=== PATIENT | male | born 1950 | race Caucasian/White ===

== ENCOUNTER 2019-06-02 12:49 | Emergency (ER) | payer MEDICARE ==
[~2019-06-02] VITALS: Ht 157.5 cm; Wt 68.0 kg
[~2019-06-02 12:49] MED LIST: ALBIPROI INH; AMIL5 PO; AMOCLA875 PO; ANXIETY MED; ASPI81EC PO; BUSP10 PO; CALCAVITDA PO; FLUNOI IH; GUAI600T33 PO; HYDACE10B PO; LEVO750 PO; LISHYD2012 PO; LISHYD2025 PO; LITH300C PO; LITH300ER PO; METH10 PO; METO25ER PO; MULVITMIND PO; NICO14TP TOP; NICOTINE; OMEP20ER PO; ONDA4 PO
[2019-06-02] MEDS ORDERED: BENZ100A PO (13:09)
[2019-06-02] MEDS ORDERED: BUSP10 PO ×2 (13:10→13:11)
[2019-06-02] MEDS ORDERED: CEPH500 PO (13:11)
[2019-06-02] MEDS ORDERED: GABA300 PO (13:12)
[2019-06-02] MEDS ORDERED: LITH300ER PO (13:13)
[2019-06-02] MEDS ORDERED: Atarax10 MG PO (13:13)
[2019-06-02] MEDS ORDERED: MONT10T PO (13:14)
[2019-06-02] MEDS ORDERED: MOME220I (13:14)
[2019-06-02] MEDS ORDERED: OMEP20ER PO (13:15)
[2019-06-02] MEDS ORDERED: STRIVERDI RESPIM4 GM INH (13:15)
[2019-06-02] MEDS ORDERED: Ultram50 MG PO (14:46)
== END 2019-06-02 15:15 | disposition home or self-care (01) ==
LOC: ER 12:49
DX: M25.552 Pain in left hip (principal); I10 Essential (primary) hypertension; F31.9 Bipolar disorder, unspecified; Z91.011 Allergy to milk products; Z79.82 Long term (current) use of aspirin; Z79.891 Long term (current) use of opiate analgesic; Z79.899 Other long term (current) drug therapy; W05.0XXA Fall from non-moving wheelchair, initial encounter
CPT/HCPCS: 73502; 99283-25

== ENCOUNTER 2019-10-24 22:30 | Inpatient (IN) | payer OTHER, MEDICARE ==
[~2019-10-24] VITALS: Ht 165.1 cm; Wt 80.8 kg
[~2019-10-24 22:30] MED LIST changes: +Aspir 8181 MG PO; +Atarax10 MG PO; +BENZ100A PO; +CEPH500 PO; +GABA300 PO; +Hair, Skin & N1 EACH PO; +MOME220I; +MONT10T PO; -MULVITMIND PO; +OYSTER SHELL 51 EACH PO; +STRIVERDI RESPIM4 GM INH; +Ultram50 MG PO
[2019-10-24 23:18] LABS: BASOPHILS ABSOLUTE AUTO 0.01 K/mm3 (0.00-0.23); BASOPHILS PERCENT AUTO 0 % (0-2); EOSINOPHILS ABSOLUTE AUTO 0.03 K/mm3 (0.00-0.68); EOSINOPHILS PERCENT AUTO 0 % (0-6); Hematocrit 38.9 % (37.0-53.0); Hemoglobin 12.2 g/dL (13.5-17.5); IMMATURE GRAN ABSOLUTE AUTO 0.04 K/mm3 (0.00-0.10); IMMATURE GRAN PERCENT AUTO 0 % (0-1); LYMPHOCYTES ABSOLUTE AUTO 2.47 K/mm3 (0.84-5.20); LYMPHOCYTES PERCENT AUTO 20 % (21-46); MONOCYTES ABSOLUTE AUTO 0.84 K/mm3 (0.16-1.47); MONOCYTES PERCENT AUTO 7 % (4-13); Mean Corpuscular HGB 29.5 pg (26.0-34.0); Mean Corpuscular HGB Conc 31.4 g/dL (31.5-36.5); Mean Corpuscular Volume 94 fL (80-100); Mean Platelet Volume 11.3 fL (9.1-12.4); NEUTROPHILS ABSOLUTE AUTO 9.11 K/mm3 (1.96-9.15); NEUTROPHILS PERCENT AUTO 73 % (41-73); Platelet Count 215 K/mm3 (150-400); RDW Coefficient Variation 13.7 % (11.7-14.2); RDW Standard Deviation 47.5 fL (35.1-46.3); Red Blood Cell Count 4.13 M/mm3 (4.30-5.90)
[2019-10-24 23:33] LABS: Alanine Aminotransfer (ALT/SGP 75 U/L (12-78); Albumin, Blood 3.9 g/dL (3.4-5.0); Albumin/Globulin Ratio 1.2 (0.8-1.8); Alk Phos 77 U/L (50-136); Anion Gap 6 mmol/L (6-16); Aspartate Aminotrans (AST/SGOT 38 U/L (12-37); Bilirubin, Total 0.2 mg/dL (0.1-1.0); Blood Urea Nitrogen 26 mg/dL (8-24); Bun/Creatinine Ratio 23.4 (12.0-20.0); CO2, Blood 25 mmol/L (21-32); Calcium, Blood 8.6 mg/dL (8.5-10.1); Chloride, Blood 111 mmol/L (98-108); Creatinine, Blood 1.11 mg/dL (0.60-1.20); Globulin, Blood 3.3 g/dL (2.2-4.0); Glomerular Filtration Rate >60 (60-); Glucose, Blood 126 mg/dL (70-99); Potassium, Blood 3.7 mmol/L (3.5-5.5); Sodium, Blood 142 mmol/L (136-145); Total Protein, Blood 7.2 g/dL (6.4-8.2); Troponin I <0.015 ng/mL (0.000-0.040)
--- NOTE | 2019-10-25 03:05 | NUR ---
PATIENT'S CAREGIVER CALLED TO SEE HOW HE WAS DOING. I UPDATED HER ON HIS STATUS AND LET HER KNOW THAT HE WAS RESTING COMFORTABLY. SINCE PATIENT WAS NOT A GOOD HISTORIAN REGARDING HIS MEDICATIONS, I WENT OVER HIS MEDICATION RECORD WITH HER. SHE SAID THE PATIENT WAS A DNR. I ASKED HER IF SHE COULD BRING IN HIS ADVANCED DIRECTIVE SO WE WOULD GET HIS WISHES ON FILE.
[2019-10-25 04:32] LABS: Hematocrit 39.4 % (37.0-53.0); Hemoglobin 12.5 g/dL (13.5-17.5); Mean Corpuscular HGB 29.6 pg (26.0-34.0); Mean Corpuscular HGB Conc 31.7 g/dL (31.5-36.5); Mean Corpuscular Volume 93 fL (80-100); Mean Platelet Volume 10.7 fL (9.1-12.4); Platelet Count 210 K/mm3 (150-400); RDW Coefficient Variation 13.7 % (11.7-14.2); RDW Standard Deviation 47.4 fL (35.1-46.3); Red Blood Cell Count 4.22 M/mm3 (4.30-5.90); White Blood Cell Count 10.39 K/mm3 (4.00-11.30)
[2019-10-25 04:56] LABS: Alanine Aminotransfer (ALT/SGP 73 U/L (12-78); Albumin, Blood 3.8 g/dL (3.4-5.0); Albumin/Globulin Ratio 1.2 (0.8-1.8); Alk Phos 70 U/L (50-136); Anion Gap 6 mmol/L (6-16); Aspartate Aminotrans (AST/SGOT 34 U/L (12-37); Bilirubin, Total 0.2 mg/dL (0.1-1.0); Blood Urea Nitrogen 28 mg/dL (8-24); Bun/Creatinine Ratio 27.7 (12.0-20.0); CO2, Blood 25 mmol/L (21-32); Calcium, Blood 8.7 mg/dL (8.5-10.1); Chloride, Blood 111 mmol/L (98-108); Creatinine, Blood 1.01 mg/dL (0.60-1.20); Globulin, Blood 3.3 g/dL (2.2-4.0); Glomerular Filtration Rate >60 (60-); Glucose, Blood 130 mg/dL (70-99); Potassium, Blood 4.2 mmol/L (3.5-5.5); Sodium, Blood 142 mmol/L (136-145); Total Protein, Blood 7.1 g/dL (6.4-8.2)
[2019-10-25 06:14] LABS: Adenovirus Not Detected (NOT DETECT); Bordetella pertussis Not Detected (NOT DETECT); Chlamydophila pneumoniae Not Detected (NOT DETECT); Coronavirus 229E Not Detected (NOT DETECT); Coronavirus HKU1 Not Detected (NOT DETECT); Coronavirus NL63 Not Detected (NOT DETECT); Coronavirus OC43 Not Detected (NOT DETECT); Human Metapneumovirus Not Detected (NOT DETECT); Human Rhinovirus/Enterovirus Not Detected (NOT DETECT); Influenza A Not Detected (NOT DETECT); Influenza A/2009-H1 Not Detected (NOT DETECT); Influenza A/H1 Not Detected (NOT DETECT); Influenza A/H3 Not Detected (NOT DETECT); Influenza B Not Detected (NOT DETECT); Mycoplasma pneumoniae Not Detected (NOT DETECT); Parainfluenza Virus 1 Not Detected (NOT DETECT); Parainfluenza Virus 2 Not Detected (NOT DETECT); Parainfluenza Virus 3 Not Detected (NOT DETECT); Parainfluenza Virus 4 Not Detected (NOT DETECT); Respiratory Syncytial Virus Not Detected (NOT DETECT)
--- NOTE | 2019-10-25 06:31 | NUR ---
SHIFT SUMMARY PATIENT ALERT AND ORIENTED. HE WAS TO WEAK TO STAND FOR A STANDING WEIGHT ON ADMISSION. BED WEIGHT OBTAINED. PATIENT IS SHORT OF BREATH AND WHEEZY, CURRENTLY ON 2 LITERS OF O2 VIA NASAL CANULA. PATIENT PLACED ON TELE. IV PATENT AND FLUSHED. BED IN LOWEST POSITION WITH WHEELS LOCKED. CALL LIGHT WITHIN REACH. REPORT GIVEN TO ONCOMING RN.
--- NOTE | 2019-10-25 19:13 | NUR ---
SHIFT SUMMARY: NO ACUTE CHANGES TO REPORT THIS SHIFT; PT ALERT; HX DEPRESSION; CALM AND COOPERATIVE WITH CARE. HX COPD; LUNGS WHEEZY; R/T FOLLOWING. TELE IN PLACE; SR c 1DEG BLOCK & BBB @ 92 PER COMMISSARY AGENT DURING MORNING ASSESSMENT. PT WHEELCHAIR BOUND AT BASELINE. IV STEROIDS CONTINUING. REPORT GIVEN TO ONCOMING RN.
--- NOTE | 2019-10-26 06:07 | NUR ---
SHIFT SUMMARY: VSS. AFEB. A/O TO SELF AND PLACE. DISORIENTED TO TIME AND UNCERTAIN ABOUT HIS REASON FOR HOSPITALIZATION. FRIENDLY AND COOPERATIVE. DIFFICULT 2 PERSON T/F USING GAIT BELT. PT IS VERY UNSTEADY ON HIS FEET WITH A STAND PIVOT T/F. EXERTIONAL DYSPNEA WITH LABORED BREATHING. RETURNS TO REGULAR, NON-LABORED BREATHS AT REST. 02 SATS WNL ON 2L VIA NC. EXPIRATIONAL WHEEZE AUSCULTATED THROUGHOUT. DISCOVERED PT WITH NASAL CANNULA OFF A COUPLE TIMES DURING THE NIGHT. ENCOURAGED TO KEEP NC IN PLACE. BED LOW, ALARM ON, CALL BUTTON EXPLAINED AND PLACED IN REACH. HAVE NOT OBSERVED PT USING CALL BUTTON FOR ASSISTANCE. FREQUENT CHECKS.
--- NOTE | 2019-10-26 17:47 | NUR ---
SHIFT SUMMARY PT AXO TO SELF AND PLACE. SPEECH DIFFICULT TO UNDERSTAND AT TIMES. COOPERATIVE WITH CARE. PHYSICAL THERAPY WORKED WITH PATIENT, SEE NOTE. PHYSICAL THERAPIST AND NURSE ASSISTED PT TO RECLINER, THOUGH PT HAD EXTREMELY DIFFICULT TIME GETTING PT BACK TO BED. MAX 3 ASSIST. 98% ON 2L VIA NC THOUGH NC CAME OFF PT MULTIPLE TIMES THROUGHOUT THE DAY. DYSPNEA WITH EXERTION. INCENTIVE SPIROMETER GIVEN TO PT AND ENCOURAGED TO USE. VSS. PT'S CAREGIVER MJ CALLED MULTIPLE TIMES THIS MORNING, UPDATED ON PT. SPEECH THERAPY EVAL, SEE NOTE. ALL MEALS WITH SUPERVISION. BED IN LOW POSITION, CALL LIGHT WITHIN REACH, BED ALARM ON.
--- NOTE | 2019-10-27 07:41 | NUR ---
SHIFT SUMMARY: A/O TO SELF AND SURROUNDINGS. DISCOVERED IN ROOM WITH 02 REMOVED FREQUENTLY. VERY DRY, HACKY SOUNDING, NON-PRODUCTIVE COUGH. COURSE EXP WHEEZING AUSCULTED THROUGH UPPER AND MID LOBES. PLEASANT, SMILING. DOES NOT MAKE NEEDS KNOWN. OCCASIONALLY CALLED OUT FOR HELP, BUT NOT CONSISTENTLY. DOES NOT USE CALL BUTTON DESPITE IT BEING EXPLAINED AND PLACED IN REACH. BED LOW, BED ALARM ON.
--- NOTE | 2019-10-27 18:30 | NUR ---
SHIFT SUMMARY PT AXO TO SELF AND CITY. NO ACUTE CHANGES THIS SHIFT. VSS. SOB WITH EXERTION. PT CHANGED AND TURNED Q2 AND PRN. PHYSICAL THERAPY WORKED WITH PT, SEE NOTE. BED IN LOW POSITION, CALL LIGHT WITHIN REACH, BED ALARM ON.
[2019-10-28 05:01] LABS: Hematocrit 43.3 % (37.0-53.0); Hemoglobin 13.7 g/dL (13.5-17.5); Mean Corpuscular HGB 29.3 pg (26.0-34.0); Mean Corpuscular HGB Conc 31.6 g/dL (31.5-36.5); Mean Corpuscular Volume 93 fL (80-100); Mean Platelet Volume 11.2 fL (9.1-12.4); Platelet Count 263 K/mm3 (150-400); RDW Coefficient Variation 13.3 % (11.7-14.2); Red Blood Cell Count 4.68 M/mm3 (4.30-5.90); White Blood Cell Count 16.86 K/mm3 (4.00-11.30)
--- NOTE | 2019-10-28 05:06 | NUR ---
SHIFT SUMMARY: A/O TO SELF. INCREASED EPISODES OF URINARY INCONTINENCE TONIGHT. URINE IS NON MALODOROUS AND PT DENIES DYSURIA. INFORMS STAFF WHEN HE IS WET BY CALLING OUT FOR ASSISTANCE. SLEPT VERY MINIMALLY. LS WITH EXPIRATORY WHEEZING THROUGHOUT. CONT WITH DRY, HARSH NON-PRODUCTIVE COUGHING, ESPESIALLY WITH EXERTION. 02 SATS 96 AND 99% ON 2L VIA NC. 02 NC FREQUENTLY DISPLACED. AFEB. BP ELEVATED. WILL RECHECK. BED LOW, CALL BUTTON EXPLAINED AND PLACED WITHIN REACH, BED ALARM ON.
[2019-10-28 05:21] LABS: Anion Gap 6 mmol/L (6-16); Blood Urea Nitrogen 34 mg/dL (8-24); Bun/Creatinine Ratio 39.3 (12.0-20.0); CO2, Blood 25 mmol/L (21-32); Calcium, Blood 9.3 mg/dL (8.5-10.1); Chloride, Blood 106 mmol/L (98-108); Creatinine, Blood 0.87 mg/dL (0.60-1.20); Glomerular Filtration Rate >60 (60-); Glucose, Blood 99 mg/dL (70-99); Potassium, Blood 4.4 mmol/L (3.5-5.5); Sodium, Blood 137 mmol/L (136-145)
--- NOTE | 2019-10-28 15:47 | NUR ---
Initial Visit: Palliative Care Consult for Advanced Care Planning, AD/POLST. Pt is A&O and denies pain at this time. Pt reports dyspnea and states the oxygen is beneficial. Pt denies nausea. Pt incontinent of bowel and assisted bedside RN Alysa with providing care. After care was provided, engaged in therapeutic discussion regarding Advanced Care Planning. Pt reports living at home and has his primary caregiver Jing living with domi. He reports 3 other caregivers come into the home and help with his care. Pt reports having 3 children that live in [place]. Pt's speech is difficult to understand. 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 He reports having a stroke in the and since then has required assistance with care. Engaged in discussion regarding COPD and educated on the disease process. Suggested the importance of routine conversations with his PCP regarding his COPD. At this point in conversation, RT in to offer breathing treatment. Pt also has a wet cough. Pt is agreeable with breathing treatment. Palliative Care will remain available and F/U with Pt at a later time when caregiver is present.
--- NOTE | 2019-10-28 16:14 | NUR ---
Initial spiritual care note: Mr. Pickering is non-adventism, but appeared to enjoy companionship and conversation. 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 He is sometimes difficult to understand. He told me some of his stories from [place] and how he saved a life there. He is very proud of this. He has a care-last repairer helper, Jing, who is like family to him. He admits he had some "wild times" in his past. He is comfortable with his limitations. He feels content with his code status. He is very personable and pleasant. I provided theraputic listening to war stories and gentle quitline counselor to good effect. I will remain available.
--- NOTE | 2019-10-28 16:56 | NUR ---
SHIFT SUMMARY PT UP TO CHAIR MOST THE DAY THIS SHIFT. PT TOLERATING WELL. PT HAD 2 LARGE SOFT BMS. TELE DC'ED. IV REMOVED. NO OTHER CHANGES IN ASSESSMENT AT THIS TIME. VSS. WILL CONTINUE TO MONITOR UNTIL TURNOVER IS COMPLETE.
[2019-10-29 05:37] LABS: Hematocrit 45.1 % (37.0-53.0); Hemoglobin 14.2 g/dL (13.5-17.5); Mean Corpuscular HGB Conc 31.5 g/dL (31.5-36.5); Mean Corpuscular Volume 92 fL (80-100); Mean Platelet Volume 11.1 fL (9.1-12.4); Platelet Count 268 K/mm3 (150-400); RDW Coefficient Variation 13.2 % (11.7-14.2); RDW Standard Deviation 45.4 fL (35.1-46.3); White Blood Cell Count 14.51 K/mm3 (4.00-11.30)
--- NOTE | 2019-10-29 07:15 | NUR ---
SHIFT SUMMARY PT CAN GET CONFUSED FORGETFUL AND CALLS OUT. INCONT OF URINE. WORE 2L O2 NC. HE WAS ABLE TO GET SOME SLEEP T/O NIGHT. BED ALARM IN USE.
--- NOTE | 2019-10-29 09:04 | NUR ---
PT CHOKED DURING BREAKFAST PT CHOKED ON HIS TOAST DURING BREAKFAST THIS AM. THIS RN WAS SUPERVISING. PT STARTED COUGHING AND TURNED RED. FOOD IN MOUTH REMOVED. AFTER PT RECOVERED PT GIVEN SOMETHING TO DRINK. PT STILL COUGHING HARSHLY IN ROOM PERIODICALLY. DR. WILLIAM AWARE OF EVENT. ST & RT NOTIFIED TO SEE PT.
--- NOTE | 2019-10-29 18:04 | NUR ---
SHIFT SUMMARY PATIENT PLEASANT AND ALERT TO SELF AND FOLLOWS COMMANDS APPROPRIATELY. PATIENT UP IN CHAIR FOR MEALS AND SUPERVISED. MEDICATIONS IN APPLESAUCE TOLERATED WELL. PATIENT CLEANED AFTER EACH INCONTINENT EPISODE. SPEECH GARBLED AND PATIENT IS EXTREMELY WHEEZY AND RONCHI SPREAD THROUGHOUT LUNGS. COUGH IS UNPRODUCTIVE BUT VERY HARSH AND WET, UNABLE TO OBTAIN SPUTUM SAMPLE. REPOSITIONING OCCURING Q 2 HOURS THROUGHOUT SHIFT. LN TO CONTINUE TO MONITOR.
--- NOTE | 2019-10-30 15:19 | NUR ---
SHIFT SUMMARY PT SLEEPING, RESTING QUIETLY AT START OF SHIFT. ADMITTED FOR PNM AND COPD. LUNGS T/O VERY COARSE. HX OF CVA; SPEECH GARBLED, ALL EXTREMITIES EQUALLY WEAK, BUT NO OTHER NOTABLE DEFICETS. PT TX TO CHAIR AT BS FOR MEALS USING GAITBELT AND 2P MAX ASSIST. PT DOES NOT ASSIST IN TX AT ALL. BLE'S VERY STIFF, PT DOES NOT WALK OR EVEN ATTEMPT TO TAKE A STEP. INCONTINENT OF BOWEL AND BLADDER. PER REPORT, PT LIVES AT HOME WITH CAREGIVERS AND IS NONAMBULATORY. NO C/O PAIN. NO S/SX OF DISTRESS NOTED OR REPORTED. CALL LT IN REACH.
--- NOTE | 2019-10-31 04:03 | NUR ---
SHIFT SUMMARY ADMIT FOR COPD EXAC./PNEUMONIA. PLAN IS FOR DC TOMORROW. LIVES W/CAREGIVER. 2 PERSON MAX ASSIST TO CHAIR. FULL CODE. ASPIRATION PRECAUTIONS. FEED W/SUPERVISION. PILLS TAKEN WHOLE IN APPLESAUCE. NO IV ACCESS. HX: CVA. SPEECH IS GARBLED SOMEWHAT. INCONTINENT/CONTINENT. FOR MILD HYPOTENSION THEY ARE ENCOURAGING FLUID INTAKE. LUNGS SOUND WET.
[2019-10-31 05:12] LABS: Hematocrit 41.8 % (37.0-53.0); Hemoglobin 13.7 g/dL (13.5-17.5); Mean Corpuscular HGB 29.7 pg (26.0-34.0); Mean Corpuscular HGB Conc 32.8 g/dL (31.5-36.5); Mean Corpuscular Volume 91 fL (80-100); Mean Platelet Volume 10.3 fL (9.1-12.4); Platelet Count 246 K/mm3 (150-400); RDW Coefficient Variation 13.1 % (11.7-14.2); Red Blood Cell Count 4.62 M/mm3 (4.30-5.90); White Blood Cell Count 16.58 K/mm3 (4.00-11.30)
[2019-10-31 05:37] LABS: Bun/Creatinine Ratio 38.2 (12.0-20.0); Calcium, Blood 8.7 mg/dL (8.5-10.1); Creatinine, Blood 1.44 mg/dL (0.60-1.20); Potassium, Blood 3.9 mmol/L (3.5-5.5)
--- NOTE | 2019-10-31 15:29 | NUR ---
PT BLOOD PRESSURE NOTED TO BE 77/53 THIS AFTERNOON. PT DID RECEIVE LISINOPRIL THIS AM PRIOR TO DR WILLIAM DC'ING IT. PT ASYMPTOMATIC. PT AWAKES AND TALKS WITH STAFF, PT LYING IN BED AT THIS TIME. DR WILLIAM NOTIFIED AND 500ML FLUID BOLUS GIVEN AND THEN LR AT 100ML/HR FOR ANOTHER DAY. WILL CONT TO MONITOR. DR WILLIAM IN TO SEE PT.
--- NOTE | 2019-10-31 17:43 | NUR ---
SHIFT SUMMARY- PT A/OX2, PERSON AND PLACE. PT WITH GARBLED SPEECH AND DIFFICULT TO UNDERSTAND AT TIMES. LS COARSE T/O, MOIST NPC, PT ON ROOM AIR. PT DENIES ANY COMPLAINTS T/O THE DAY. PT A MAX 2 ASSIST UP TO CHAIR. [address] CHANGED PT TO FLUIDS VIA SPOON ONLY. BP LOW IN THE 70'S THIS EVENING, 500ML LR BOLUS GIVEN AND FLUIDS AT 100ML/HR THEREAFTER, PT ASYMPTOMATIC. NO OTHER ACUTE CHANGES THIS SHIFT. UPDATE GIVEN TO CAREGIVER MJ TODAY.
--- NOTE | 2019-11-01 04:24 | NUR ---
SHIFT SUMMARY ADMIT FOR PNEUMONIA/COPD EXACERBATION. FULL CODE. SOME ONGOING ISSUES WITH HYPOTENSIVE EPISODES AND LUIZ, PT MAY BE DEHYDRATED. LR IS INFUSING 100 ML/HR ORDERED. LUNGS ARE STILL SOUNDING WET. PT LIVES W/CAREGIVER. [facility] SOFT DIET/ASPIRATION PRECAUTIONS, SUPERVISION REQUIRED WHEN EATING. PILLS TAKEN WHOLE IN APPLESAUCE. RA THIS SHIFT. HX: CVA, SOME GARBLED SPEECH BUT CAN BE UNDERSTOOD.
[2019-11-01 04:58] LABS: Hematocrit 39.6 % (37.0-53.0); Hemoglobin 12.9 g/dL (13.5-17.5); Mean Corpuscular HGB 29.4 pg (26.0-34.0); Mean Corpuscular HGB Conc 32.6 g/dL (31.5-36.5); Mean Corpuscular Volume 90 fL (80-100); Mean Platelet Volume 10.9 fL (9.1-12.4); Platelet Count 231 K/mm3 (150-400); RDW Coefficient Variation 13.1 % (11.7-14.2); RDW Standard Deviation 43.2 fL (35.1-46.3); Red Blood Cell Count 4.39 M/mm3 (4.30-5.90); White Blood Cell Count 12.68 K/mm3 (4.00-11.30)
[2019-11-01 05:27] LABS: Bun/Creatinine Ratio 31.5 (12.0-20.0); Calcium, Blood 8.8 mg/dL (8.5-10.1); Creatinine, Blood 1.62 mg/dL (0.60-1.20)
--- NOTE | 2019-11-01 05:58 | NUR ---
SHIFT SUMMARY ADDENDUM RE: POSSIBLE LUIZ AND MORNING LABS (SPECIFICALLY BUN, CREATININE, AND GFR). IT MAY BE INCONSEQUENTIAL TO NOTE, BUT I AM ADMINISTERING LITHIUM AT 2100 EACH NIGHT. ON THE OTHER HAND, MY AID TELLS ME THAT THIS PT IS NOT INGESTING MUCH IN FLUID INTAKE. LR IS INFUSING.
--- NOTE | 2019-11-01 16:14 | NUR ---
Palliative care follow up visit made. Pt sitting up in chair. He is difficult to understand but he is very talkative. He denies pain or distress and is still experiencing some soboe and with conversation. Pt reports he believes he is being d/c'd tomorrow. He is worried about not being strong enough to be more helpful to his caregiver or worried about being too heavy of care for her at this time. CG Jing not present when I have come by t/o the past two days. CM has been involved in Elian's dc planning. I inquired if pt had quesitons re: code status & he is not interested in discussing his code status or advanced care planning at this time. No further f/u planned unless pt remains hospitalized on Monday.
--- NOTE | 2019-11-01 17:03 | NUR ---
SHIFT SUMMARY- PT A/OX2, PERSON AND PLACE. PT DENIES ANY COMPLAINTS T/O THE DAY. PT UP TO CHAIR WITH 2 ASSIST. LS COARSE WITH MOIST NON PRODUCTIVE COUGH BUT APPEARS TO BE IMPROVED FROM YESTERDAY. PT REMAINS ON ROOM AIR. PT REMAINED ON IVF UNTIL THIS AFTERNOON, PT WITH GOOD URINE OUTPUT, INCONT OF URINE. NO OTHER ACUTE CHANGES THIS SHIFT.
[2019-11-02 06:02] LABS: Anion Gap 5 mmol/L (6-16); Blood Urea Nitrogen 36 mg/dL (8-24); CO2, Blood 25 mmol/L (21-32); Calcium, Blood 8.9 mg/dL (8.5-10.1); Chloride, Blood 107 mmol/L (98-108); Glomerular Filtration Rate >60 (60-); Glucose, Blood 86 mg/dL (70-99); Potassium, Blood 4.1 mmol/L (3.5-5.5); Sodium, Blood 137 mmol/L (136-145)
--- NOTE | 2019-11-02 07:30 | NUR ---
SHIFT SUMMARY: PATIENT IS A&OX2, PERSON AND PLACE, NO REPORTS OF PAIN. INC. OF URINE, NO BM THIS SHIFT, 10/31/19 WAS LAST BM. PLUMBING ENGINEERING DRAFTSPERSON SPOKE WITH CHRISSY AND PRIMARY STONE ENGRAVER, MJ. MJ REPORTS THEY ARE HAVING DIFFICULTY AT HOME WITH TRANSFERS. HERE THE PATIENT IS A HEAVY ASSIST OF 2 WITH A GAIT BELT, STAND AND PIVOT. BED ALARM IS ON FOR SAFETY.
--- NOTE | 2019-11-02 19:09 | NUR ---
PT. SITING IN BED. PT. WAS UP IN CHAIR MOST OF THE DAY, USED BSC. PT. A VERY HEAVY 2-PERSON PIVOT TRANSFER WITH GAIT BELT. PT. EATING WELL WITH ASSIST OF THE VP OF PRODUCT. NO NOTEABLE CHANGES THIS SHIFT. PROBABLE DISCHARGE IN THE A.M.
--- NOTE | 2019-11-03 05:33 | NUR ---
SHIFT SUMMARY: PATIENT IS A&OX3, REPORTED LEFT LEG PAIN FROM OLD FRACTURE, TYLENOL WAS GIVEN WITH GOOD EFFECT. PATIENT IS INCONTINENT OF LARGE AMOUNTS OF URINE. VS ARE STABLE, BED ALARM IS ON FOR SAFETY.
[2019-11-03] MEDS ORDERED: ALBU3IS INH (09:07)
[2019-11-03] MEDS ORDERED: BUDE.25 INH (09:08)
[2019-11-03] MEDS ORDERED: ROBITUSSIN COU237 ML PO (09:09)
[2019-11-03] MEDS ORDERED: Prednisone10 MG PO (09:10)
--- NOTE | 2019-11-03 10:55 | NUR ---
PT. DISCHARGED HOME WITH CAREGIVERS, [facility] AND [facility] WILL P[facility] THEM UP IN THE MORNING. EDUCATION ON PT'S DIET GIVEN VERBALLY AND WRITTEN.
== END 2019-11-03 11:00 | disposition home health service (06) | DRG 189 ==
LOC: ER 22:30 → MEDS 22:31
PROVIDERS: Emergency Medicine; Internal Medicine; ADMIT Internal Medicine
DX: J96.21 Acute and chronic respiratory failure with hypoxia (principal); N17.9 Acute kidney failure, unspecified; J44.1 Chronic obstructive pulmonary disease with (acute) exacerbation; J96.22 Acute and chronic respiratory failure with hypercapnia; F31.9 Bipolar disorder, unspecified; I95.9 Hypotension, unspecified; R93.89 Abnormal findings on diagnostic imaging of other specified body structures; K21.9 Gastro-esophageal reflux disease without esophagitis; F43.10 Post-traumatic stress disorder, unspecified; I10 Essential (primary) hypertension; I69.920 Aphasia following unspecified cerebrovascular disease; Z87.891 Personal history of nicotine dependence
CPT/HCPCS: 0099U; 36415; 71046; 71250; 80048; 80053; 83605; 83880; 84484; 85025; 85027; 87040; 92526; 92610; 93005; 93010; 94640; 94667; 94760; 96372; 96374; 96375; 96376; 97110; 97162; 97166; 97530; 97535; 99285-25; A9270; G0378; J0456; J0696; J1650; J2930; J7050; J7120; J7512

== ENCOUNTER 2020-01-08 20:04 | Emergency (ER) | payer OTHER, MEDICARE ==
[~2020-01-08] VITALS: Ht 165.1 cm; Wt 78.9 kg
[~2020-01-08 20:04] MED LIST changes: +ALBU3IS INH; +BUDE.25 INH; +Prednisone10 MG PO; +ROBITUSSIN COU237 ML PO
[2020-01-08 20:32] LABS: BASOPHILS ABSOLUTE AUTO 0.04 K/mm3 (0.00-0.23); BASOPHILS PERCENT AUTO 0 % (0-2); EOSINOPHILS ABSOLUTE AUTO 0.48 K/mm3 (0.00-0.68); EOSINOPHILS PERCENT AUTO 4 % (0-6); Hematocrit 39.5 % (37.0-53.0); Hemoglobin 12.7 g/dL (13.5-17.5); IMMATURE GRAN ABSOLUTE AUTO 0.03 K/mm3 (0.00-0.10); IMMATURE GRAN PERCENT AUTO 0 % (0-1); LYMPHOCYTES ABSOLUTE AUTO 3.68 K/mm3 (0.84-5.20); LYMPHOCYTES PERCENT AUTO 34 % (21-46); MONOCYTES ABSOLUTE AUTO 1.02 K/mm3 (0.16-1.47); MONOCYTES PERCENT AUTO 9 % (4-13); Mean Corpuscular HGB 30.2 pg (26.0-34.0); Mean Corpuscular HGB Conc 32.2 g/dL (31.5-36.5); Mean Corpuscular Volume 94 fL (80-100); Mean Platelet Volume 10.3 fL (9.1-12.4); NEUTROPHILS ABSOLUTE AUTO 5.58 K/mm3 (1.96-9.15); NEUTROPHILS PERCENT AUTO 52 % (41-73); Platelet Count 225 K/mm3 (150-400); RDW Coefficient Variation 13.6 % (11.7-14.2); RDW Standard Deviation 46.7 fL (35.1-46.3); White Blood Cell Count 10.83 K/mm3 (4.00-11.30)
[2020-01-08 20:56] LABS: Alanine Aminotransfer (ALT/SGP 121 U/L (12-78); Albumin, Blood 3.7 g/dL (3.4-5.0); Albumin/Globulin Ratio 1.1 (0.8-1.8); Alk Phos 81 U/L (50-136); Anion Gap 2 mmol/L (6-16); Aspartate Aminotrans (AST/SGOT 72 U/L (12-37); Bilirubin, Total 0.3 mg/dL (0.1-1.0); Blood Urea Nitrogen 16 mg/dL (8-24); CO2, Blood 26 mmol/L (21-32); Calcium, Blood 8.4 mg/dL (8.5-10.1); Chloride, Blood 110 mmol/L (98-108); Creatinine, Blood 0.84 mg/dL (0.60-1.20); Globulin, Blood 3.3 g/dL (2.2-4.0); Glomerular Filtration Rate >60 (60-); Glucose, Blood 146 mg/dL (70-99); Potassium, Blood 3.5 mmol/L (3.5-5.5); Sodium, Blood 138 mmol/L (136-145); Troponin I <0.015 ng/mL (0.000-0.040)
[2020-01-08] MEDS ORDERED: Levaquin500 MG PO (23:46)
[2020-01-08] MEDS ORDERED: Prednisone20 MG PO (23:46)
== END 2020-01-09 00:12 | disposition home or self-care (01) ==
LOC: ER 20:04
PROVIDERS: Emergency Medicine
DX: R06.02 Shortness of breath (principal); I10 Essential (primary) hypertension; F32.9 Major depressive disorder, single episode, unspecified; Z91.011 Allergy to milk products; Z79.899 Other long term (current) drug therapy; Z79.82 Long term (current) use of aspirin; Z79.51 Long term (current) use of inhaled steroids; Z87.891 Personal history of nicotine dependence
CPT/HCPCS: 71046; 80053; 84484; 85025; 93005; 93010; 99284-25; J7512

== ENCOUNTER 2020-01-14 23:07 | Emergency (ER) | payer OTHER, MEDICARE ==
[~2020-01-14] VITALS: Ht 165.1 cm; Wt 78.9 kg
[~2020-01-14 23:07] MED LIST changes: +Levaquin500 MG PO; +Prednisone20 MG PO
== END 2020-01-15 00:51 | disposition home or self-care (01) ==
LOC: ER 23:07
DX: S90.31XA Contusion of right foot, initial encounter (principal); I10 Essential (primary) hypertension; J44.9 Chronic obstructive pulmonary disease, unspecified; F33.9 Major depressive disorder, recurrent, unspecified; Z87.891 Personal history of nicotine dependence; Z79.82 Long term (current) use of aspirin; Z79.899 Other long term (current) drug therapy; Z91.011 Allergy to milk products; W01.0XXA Fall on same level from slipping, tripping and stumbling without subsequent striking against object, initial encounter
CPT/HCPCS: 73630; 99283-25

== ENCOUNTER 2020-02-21 08:24 | Emergency (ER) | payer OTHER, MEDICARE ==
[~2020-02-21] VITALS: Ht 172.7 cm; Wt 86.2 kg
== END 2020-02-21 10:36 | disposition home or self-care (01) ==
LOC: ER 08:24
DX: S16.1XXA Strain of muscle, fascia and tendon at neck level, initial encounter (principal); S80.02XA Contusion of left knee, initial encounter; I10 Essential (primary) hypertension; J44.9 Chronic obstructive pulmonary disease, unspecified; F43.10 Post-traumatic stress disorder, unspecified; Z91.011 Allergy to milk products; Z79.82 Long term (current) use of aspirin; Z79.899 Other long term (current) drug therapy; Z86.19 Personal history of other infectious and parasitic diseases; F31.9 Bipolar disorder, unspecified; F41.9 Anxiety disorder, unspecified; Z86.73 Personal history of transient ischemic attack (TIA), and cerebral infarction without residual deficits; W06.XXXA Fall from bed, initial encounter
CPT/HCPCS: 72040; 73560-LT; 99283-25